=== PATIENT | female | born 1990 | race Two or more races ===

== ENCOUNTER 2023-01-05 23:18 | Emergency (ER) | payer MEDICAID, OTHER ==
[~2023-01-05] VITALS: Ht 170.2 cm; Wt 84.0 kg
[2023-01-06 00:01] VITALS: BP 131/86; PULSE 115; RESP 18; O2SAT 98
== END 2023-01-06 01:19 | disposition left against medical advice (07) ==
LOC: ER 23:18
DX: R22.0 Localized swelling, mass and lump, head (principal); Z53.21 Procedure and treatment not carried out due to patient leaving prior to being seen by health care provider; W18.00XA Striking against unspecified object with subsequent fall, initial encounter; Y93.89 Activity, other specified; Y92.89 Other specified places as the place of occurrence of the external cause; Y99.8 Other external cause status